=== PATIENT | female | born 1955 | race Caucasian/White ===

== ENCOUNTER 2017-10-23 08:30 | Inpatient (IN) | payer MEDICAID, OTHER ==
[~2017-10-23] VITALS: Ht 170.2 cm; Wt 71.4 kg
[2017-10-23 09:01] LABS: Basophils # (auto) 0.1 uL; Basophils % (auto) 0.8 % (0.0-2.0); Eosinophils # (auto) 0 uL; Eosinophils % (auto) 0.5 % (0.0-7.0); Hematocrit 45.9 % (36.0-46.0); Hemoglobin 15.5 g/dL (12.2-16.2); Lymphocytes % (auto) 12.9 % (10.0-50.0); Mean Corpuscular Hemoglobin 32.1 pg (28.0-32.0); Mean Corpuscular Hgb Conc. 33.7 g/dL (32.0-36.0); Mean Corpuscular Volume 95.3 fL (80.0-100.0); Monocytes # (auto) 0.6 uL; Monocytes % (auto) 8.3 % (0.0-12.0); Neutrophils # (auto) 5.8 uL; Neutrophils % (auto) 77.5 % (37.0-80.0); Platelet Count (auto) 262 10^3/uL (140-450); Red Blood Cells 4.82 10^6/uL (4.0-5.20); Red Cell Distribution Width 13.7 % (11.8-14.3); White Blood Cell 7.5 10^3/uL (4.4-10.8)
[2017-10-23] MEDS ORDERED: cloNIDine HCL 0.1 MG TAB PO ONE (09:30)
[2017-10-23] MEDS ORDERED: SODIUM CHLORIDE 0.9% 1,000 ML IV ONE (10:24)
[2017-10-23] MEDS ORDERED: MORPHINE SULFATE 4 MG/ML SYR/VIAL IV ONE ×2 (10:30→19:30)
[2017-10-23 11:15] LABS: Urine Amorphous Crystal MANY /hpf (None Seen); Urine Bacteria NONE SEEN /hpf (None Seen); Urine Blood Negative /uL (Negative); Urine Specific Gravity 1.024 (1.001-1.035); Urine WBC <1 /hpf (0 - 5)
[2017-10-23 11:39] LABS: Albumin 3.5 g/dL (3.4-5.0); BUN/Creatinine Ratio 22.4; Bilirubin, Total 0.4 mg/dL (0.2-1.0); Magnesium 2.6 mg/dL (1.6-2.6); Potassium 3.7 mmol/L (3.5-5.1); Total Protein 6.5 g/dL (6.4-8.2)
[2017-10-23] MEDS ORDERED: GASTROGRAFIN 120 ML SOL ONE (13:16)
[2017-10-23] MEDS ORDERED: MORPHINE SULF INJ 2 MG/ML SYRINGE 1ML IV ONE (13:30)
[2017-10-23] MEDS ORDERED: ONDANSETRON HCL 4 MG/2 ML VIAL IV ONE ×2 (13:30→19:30)
[2017-10-23] MEDS ORDERED: LORazepam 2MG/ML-1ML VIAL IV ONE (21:30)
[2017-10-24] MEDS ORDERED: ONDANSETRON HCL 4 MG/2 ML VIAL ONE (02:08)
[2017-10-24] MEDS ORDERED: NALBUPHINE HCL 10 MG/1ml INJECTION IV ONE (02:15)
[2017-10-24] MEDS ORDERED: ONDANSETRON HCL 4 MG/2 ML VIAL IV ONE (02:15)
[2017-10-24] MEDS ORDERED: NITROGLYCERIN 0.4 MG SL TAB SL PRN (03:30)
[2017-10-24] MEDS ORDERED: LORazepam 0.5 MG TAB PO PRN (03:30)
[2017-10-24] MEDS ORDERED: MORPHINE SULF INJ 2 MG/ML SYRINGE 1ML IV PRN (03:30)
[2017-10-24] MEDS ORDERED: ZOLPIDEM TARTRATE 5 MG TAB PO PRN (03:30)
[2017-10-24] MEDS ORDERED: ENOXAPARIN SOD 40 MG/0.4 ML SYRINGE SC SCH (06:00)
[2017-10-24 06:11] VITALS: BP 167/98
[2017-10-24] MEDS ORDERED: GABA300C10 PO (06:26)
[2017-10-24] MEDS ORDERED: CITA10TA59 PO (06:26)
[2017-10-24] MEDS ORDERED: BUPR-40 PO (06:26)
[2017-10-24] MEDS ORDERED: FAM20T GT (06:26)
[2017-10-24] MEDS ORDERED: TRAZ-181 PO (06:26)
[2017-10-24] MEDS ORDERED: ATEN-60 PO (06:26)
[2017-10-24] MEDS ORDERED: HYDR-4683 PO (06:26)
[2017-10-24] MEDS ORDERED: SIMV-8 PO (06:26)
[2017-10-24] MEDS ORDERED: LEV50T PO (06:26)
[2017-10-24] MEDS ORDERED: ONDA4TAB5 PO (06:26)
[2017-10-24] MEDS: ACETAMINOPHEN 500 MG TAB PO PRN ×3 (06:28→20:21)
[2017-10-24 06:29] VITALS: BP 156/86
[2017-10-24] MEDS: DOCUSATE SOD 100 MG CAP PO SCH (09:48)
[2017-10-24] MEDS: METOPROLOL TARTRATE 25 MG TAB PO SCH ×2 (09:49→22:49)
[2017-10-24] MEDS ORDERED: ENOXAPARIN SOD 80 MG/0.8ML SYRINGE SC SCH ×2 (10:00→22:00)
[2017-10-24] MEDS ORDERED: ENOXAPARIN SOD 80 MG/0.8ML SYRINGE SC ONE (10:30)
[2017-10-24] MEDS: HYDROmorphone HCL 2 MG/ML VL IV PRN ×3 (11:31→20:22)
[2017-10-24 11:59] LABS: BUN/Creatinine Ratio 17.9; Calcium 8.6 mg/dL (8.5-10.1); Potassium 3.5 mmol/L (3.5-5.1)
[2017-10-24 12:00] VITALS: BP 154/90
[2017-10-24 12:21] LABS: Basophils # (auto) 0.1 uL; Eosinophils # (auto) 0.1 uL; Eosinophils % (auto) 0.7 % (0.0-7.0); Hemoglobin 13.5 g/dL (12.2-16.2); Lymphocytes # (auto) 1.3 uL; Lymphocytes % (auto) 17.2 % (10.0-50.0); Mean Corpuscular Hemoglobin 32.9 pg (28.0-32.0); Mean Corpuscular Hgb Conc. 33.7 g/dL (32.0-36.0); Mean Corpuscular Volume 97.5 fL (80.0-100.0); Monocytes # (auto) 0.8 uL; Monocytes % (auto) 10.4 % (0.0-12.0); Neutrophils # (auto) 5.3 uL; Neutrophils % (auto) 70.7 % (37.0-80.0); Nucleated Red Blood Cells % 0.2 %; Platelet Count (auto) 216 10^3/uL (140-450); Red Cell Distribution Width 13.8 % (11.8-14.3); White Blood Cell 7.5 10^3/uL (4.4-10.8)
[2017-10-24 12:31] LABS: Prothrombin Time 10.7 sec (9.27-12.13)
[2017-10-24] MEDS: SODIUM CHLORIDE 0.9% 1,000 ML IV SCH ×2 (13:47→22:50)
[2017-10-24] MEDS: ENALAPRILAT 1.25 MG/ML-1ML VIAL IV PRN (13:48)
[2017-10-24] MEDS ORDERED: CLOPIDOGREL BISULFATE 75 MG TAB PO ONE (15:30)
[2017-10-24] MEDS ORDERED: GABAPENTIN 300 MG CAP PO PRN (15:45)
[2017-10-24] MEDS ORDERED: FAMOTIDINE 20 MG TAB PO ONE (15:45)
[2017-10-24] MEDS: ONDANSETRON HCL 4 MG/2 ML VIAL IV PRN ×2 (16:19→20:21)
[2017-10-24 16:54] VITALS: BP 146/80
[2017-10-24] MEDS: buPROPion HCL 75 MG TAB PO SCH (19:07)
[2017-10-24] MEDS ORDERED: ATORVASTATIN 20 MG TAB PO SCH ×2 (22:00)
[2017-10-24 22:09] VITALS: BP 156/83
[2017-10-24] MEDS: traZODone HCL 50 MG TAB PO SCH (22:48)
[2017-10-24] MEDS: ATORVASTATIN 20 MG TAB PO SCH (22:48)
[2017-10-25] MEDS: ONDANSETRON HCL 4 MG/2 ML VIAL IV PRN ×3 (01:47→18:49)
[2017-10-25] MEDS: HYDROmorphone HCL 2 MG/ML VL IV PRN ×4 (01:48→20:46)
[2017-10-25 05:00] VITALS: BP 134/75
[2017-10-25] MEDS: buPROPion HCL 75 MG TAB PO SCH ×2 (05:42→18:59)
[2017-10-25] MEDS: LEVOTHYROXINE SODIUM 50 MCG TAB PO SCH (05:42)
[2017-10-25 06:16] LABS: Basophils # (auto) 0.1 uL; Basophils % (auto) 1.8 % (0.0-2.0); Eosinophils # (auto) 0.1 uL; Eosinophils % (auto) 2.1 % (0.0-7.0); Hematocrit 43.1 % (36.0-46.0); Hemoglobin 14.4 g/dL (12.2-16.2); Lymphocytes # (auto) 2.3 uL; Lymphocytes % (auto) 37.1 % (10.0-50.0); Mean Corpuscular Hemoglobin 32.6 pg (28.0-32.0); Mean Corpuscular Hgb Conc. 33.5 g/dL (32.0-36.0); Mean Corpuscular Volume 97.3 fL (80.0-100.0); Monocytes # (auto) 0.7 uL; Neutrophils # (auto) 2.9 uL; Nucleated Red Blood Cells % 0.1 %; Platelet Count (auto) 227 10^3/uL (140-450); Red Blood Cells 4.43 10^6/uL (4.0-5.20); Red Cell Distribution Width 13.6 % (11.8-14.3); White Blood Cell 6.1 10^3/uL (4.4-10.8)
[2017-10-25 06:44] LABS: BUN/Creatinine Ratio 11.9; Potassium 3.6 mmol/L (3.5-5.1)
[2017-10-25 08:26] VITALS: BP 163/95
[2017-10-25] MEDS ORDERED: IODIXANOL 320MG/ML 100ML BTL IV ONE (09:28)
[2017-10-25] MEDS ORDERED: LIDOCAINE 2% (LOCAL ANESTH.) PF 5ml SDV ONE (09:28)
[2017-10-25] MEDS ORDERED: VERAPAMIL 2.5MG/ML INJ 2ML VIAL IV ONE (09:41)
[2017-10-25] MEDS ORDERED: MIDAZOLAM HCL 1MG/1ML-2 ML VIAL ONE (09:41)
[2017-10-25] MEDS ORDERED: fentaNYL CITRATE 100 MCG/2 ML VL ONE (09:41)
[2017-10-25] MEDS ORDERED: EPTIFIBATIDE INJ (2MG/ML) 10ML VIAL IV ONE (09:42)
[2017-10-25] MEDS ORDERED: SODIUM CHL 0.9% 50 ML ONE (09:42)
[2017-10-25] MEDS ORDERED: ANGIOMAX 250 MG VIAL IV ONE (09:42)
[2017-10-25] MEDS ORDERED: NITROGLYCERIN 5MG/ML 10ML VIAL IV ONE (09:43)
[2017-10-25] MEDS: CITALOPRAM HYDROBR 20 MG TAB PO SCH ×2 (10:00→15:25)
[2017-10-25] MEDS ORDERED: HEPARIN 1,000 UNITS/ml 1ML VIAL ONE (10:26)
[2017-10-25 12:29] VITALS: BP 157/81
[2017-10-25] MEDS: SODIUM CHLORIDE 0.9% 1,000 ML IV SCH ×2 (15:24→18:59)
[2017-10-25] MEDS: DOCUSATE SOD 100 MG CAP PO SCH (15:25)
[2017-10-25] MEDS: ASPirin 81 mg TAB PO SCH (15:25)
[2017-10-25] MEDS: FAMOTIDINE 20 MG TAB PO SCH (15:26)
[2017-10-25] MEDS: METOPROLOL TARTRATE 25 MG TAB PO SCH ×2 (15:26→21:38)
[2017-10-25] MEDS: CLOPIDOGREL BISULFATE 75 MG TAB PO SCH (15:26)
[2017-10-25 16:44] VITALS: BP 168/90
[2017-10-25] MEDS: traZODone HCL 50 MG TAB PO SCH (21:36)
[2017-10-25] MEDS: ENALAPRILAT 1.25 MG/ML-1ML VIAL IV PRN (21:37)
[2017-10-25] MEDS: ATORVASTATIN 20 MG TAB PO SCH (21:38)
[2017-10-25 22:00] VITALS: BP 173/86
[2017-10-26 05:00] VITALS: BP 150/65
[2017-10-26] MEDS: buPROPion HCL 75 MG TAB PO SCH ×3 (06:11→18:52)
[2017-10-26] MEDS: SODIUM CHLORIDE 0.9% 1,000 ML IV SCH ×2 (06:12→15:00)
[2017-10-26] MEDS: LEVOTHYROXINE SODIUM 50 MCG TAB PO SCH (06:12)
[2017-10-26 08:00] VITALS: BP 137/71
[2017-10-26 08:53] VITALS: BP 137/71
[2017-10-26] MEDS: ASPirin 81 mg TAB PO SCH (09:32)
[2017-10-26] MEDS: FAMOTIDINE 20 MG TAB PO SCH (09:32)
[2017-10-26] MEDS: CLOPIDOGREL BISULFATE 75 MG TAB PO SCH (09:32)
[2017-10-26] MEDS: HYDROmorphone HCL 2 MG/ML VL IV PRN ×2 (09:32→15:08)
[2017-10-26] MEDS: DOCUSATE SOD 100 MG CAP PO SCH (09:33)
[2017-10-26] MEDS: CITALOPRAM HYDROBR 20 MG TAB PO SCH (09:33)
[2017-10-26] MEDS: METOPROLOL TARTRATE 25 MG TAB PO SCH (09:35)
[2017-10-26] MEDS: ONDANSETRON HCL 4 MG/2 ML VIAL IV PRN ×2 (10:17→16:59)
[2017-10-26] MEDS: ENALAPRILAT 1.25 MG/ML-1ML VIAL IV PRN (11:29)
[2017-10-26 13:00] VITALS: BP 157/93
[2017-10-26 16:18] VITALS: BP 145/92
[2017-10-26 18:11] VITALS: BP 145/92
== END 2017-10-26 19:21 | disposition short-term general hospital (02) | DRG 247 ==
LOC: EDSEX 08:30 → ER 08:30 → EDBD 08:30 → TELE 08:31 → TELE-EAST 10-24 05:55
PROVIDERS: ADMIT Nurse Practitioner Family; ATTEND Internal Medicine
PROC: 4A023N7 Measurement of Cardiac Sampling and Pressure, Left Heart, Percutaneous Approach (ICD-10-PCS; principal; 2017-10-25)
PROC: B2111ZZ Fluoroscopy of Multiple Coronary Arteries using Low Osmolar Contrast (ICD-10-PCS; 2017-10-25)
DX: K56.600 Partial intestinal obstruction, unspecified as to cause (principal); R18.8 Other ascites; J45.909 Unspecified asthma, uncomplicated; K57.30 Diverticulosis of large intestine without perforation or abscess without bleeding; K59.01 Slow transit constipation; I10 Essential (primary) hypertension; F15.10 Other stimulant abuse, uncomplicated; M79.7 Fibromyalgia; G89.29 Other chronic pain; M54.9 Dorsalgia, unspecified; Z90.49 Acquired absence of other specified parts of digestive tract; I25.2 Old myocardial infarction; Z81.8 Family history of other mental and behavioral disorders; Z82.3 Family history of stroke; Z82.49 Family history of ischemic heart disease and other diseases of the circulatory system; Z87.891 Personal history of nicotine dependence; Z88.6 Allergy status to analgesic agent; Z88.5 Allergy status to narcotic agent; Z79.899 Other long term (current) drug therapy
CPT/HCPCS: 36415; 71045; 71046; 74176; 74250; 80048; 80053; 80061; 81001; 83690; 83735; 84443; 84484; 85025; 85610; 86850; 86900; 86901; 93005; 93306; 93458; 94761; 96361; 96374; 96375; 96376; 99152; A6257; J2001; J2250; J2405; J3490; Q9967